=== PATIENT | male | born 1960 | race Hispanic/Latino ===

== ENCOUNTER 2021-03-09 14:12 | Emergency (ER) | payer MEDICAID, OTHER ==
--- NOTE | 2021-03-09 14:37 | Event Note ---
ED Screening Note ED Screening Note: Patient presents for lightheadedness that began today He states he then began having chest pain to the bilateral chest and reports it feels like someone is pressing knuckles into his chest He has associated shortness of breath and nausea He denies any vomiting, diarrhea, fever, cough, leg swelling Past medical history of CHF with defibrillator, HTN Former smoker This initial assessment/diagnostic orders/clinical plan/treatment(s) is/are subject to change based on patients health status, clinical progression and re- assessment by fellow clinical providers in the ED. Further treatment and workup at subsequent clinical providers discretion. Patient/guardian urged not to elope from the ED as their condition may be serious if not clinically assessed and managed. Initial orders include: labs, ekg, xr
[2021-03-09 15:00] LABS: Basophils # (Auto) 0.1 K/mm3 (0.0-0.1); Basophils % (Auto) 0.9 % (0.0-1.8); Eosinophils # (Auto) 0.6 K/mm3 (0.0-0.4); Eosinophils % (Auto) 3.9 % (0.0-4.3); Hematocrit 47.8 % (35.5-45.6); Hemoglobin 16.6 gm/dl (11.8-15.2); Lymphocytes # (Auto) 3.2 K/mm3 (1.2-5.4); Lymphocytes % (Auto) 21.7 % (13.4-35.0); Mean Corpuscular HGB Conc 35 % (32-34); Mean Corpuscular Volume 93 fl (84-94); Monocytes # (Auto) 0.9 K/mm3 (0.0-0.8); Monocytes % (Auto) 6.1 % (0.0-7.3); Platelet Count 244 K/mm3 (140-440); Red Blood Count 5.13 M/mm3 (3.65-5.03)
[2021-03-09 15:12] LABS: INR 0.94 (0.87-1.13); Partial Thromboplastin Time 30.8 Sec. (24.2-36.6)
[2021-03-09 15:15] LABS: Alanine Aminotransferase 18 units/L (7-56); Albumin 4.1 g/dL (3.9-5); BUN/Creatinine Ratio 20; Blood Urea Nitrogen 16 mg/dL (9-20); Calcium 9.1 mg/dL (8.4-10.2); Hemolysis Index 17
--- NOTE | 2021-03-09 15:43 | XRay Report ---
CHEST 2 VIEWS INDICATION / CLINICAL INFORMATION: Chest Pain. COMPARISON: None available. FINDINGS: SUPPORT DEVICES: Cardiac ICD lead appears appropriately positioned. HEART / MEDIASTINUM: No significant abnormality. LUNGS / PLEURA: No significant pulmonary or pleural abnormality. No pneumothorax. ADDITIONAL FINDINGS: No significant additional findings. IMPRESSION: 1. No acute findings. Signer Name: Deejay Willson MD Signed: 03/09/2021 3:38 PM Workstation Name: [id number]
--- NOTE | 2021-03-09 18:14 | Emergency Department Report ---
ED General Adult HPI - General Chief complaint: Chest Pain Stated complaint: CHEST PAIN Time Seen by Provider: 03/09/21 15:12 Source: patient Mode of arrival: Ambulatory Limitations: No Limitations - History of Present Illness Initial comments: Patient presents to the emergency department with a chief complaint of chest pain has been present for the last 2 weeks. Patient states the pain is on the left side of his chest and radiates into his back. 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 He also states has been out of his thyroid medications for approximately 2 days. Patient states he has an appointment with the PA for medication refills. Patient denies abdominal pain or shortness of breath. Chest pain has been constant for 2 weeks -: Sudden Location: chest Radiation: back Severity scale (0 -10): 6 Quality: sharp Consistency: constant Improves with: none Worsens with: none Associated Symptoms: denies other symptoms Treatments Prior to Arrival: none - Related Data Allergies Allergy/AdvReac Type Severity Reaction Status Date / Time Penicillins Allergy Anaphylaxis Verified 03/09/21 14:30 ED Review of Systems ROS: Stated complaint: CHEST PAIN Other details as noted in HPI Comment: All other systems reviewed and negative Constitutional: denies: chills, fever Eyes: denies: eye pain, eye discharge, vision change ENT: denies: ear pain, throat pain Respiratory: denies: cough, shortness of breath, wheezing Cardiovascular: chest pain. denies: palpitations Endocrine: no symptoms reported Gastrointestinal: denies: abdominal pain, nausea, diarrhea Genitourinary: denies: urgency, dysuria Musculoskeletal: denies: back pain, joint swelling, arthralgia Skin: denies: rash, lesions Neurological: denies: headache, weakness, paresthesias Psychiatric: denies: anxiety, depression Hematological/Lymphatic: denies: easy bleeding, easy bruising ED Past Medical Hx - Past Medical History Previous Medical History?: Yes Hx Hypertension: Yes ED Physical Exam - General Limitations: No Limitations General appearance: alert, in no apparent distress - Head Head exam: Present: atraumatic, normocephalic - Eye Eye exam: Present: normal appearance, PERRL, EOMI - ENT ENT exam: Present: mucous membranes moist - Neck Neck exam: Present: normal inspection - Respiratory Respiratory exam: Present: normal lung sounds bilaterally. Absent: respiratory distress - Cardiovascular Cardiovascular Exam: Present: regular rate, normal rhythm. Absent: systolic murmur, diastolic murmur, rubs, gallop - GI/Abdominal GI/Abdominal exam: Present: soft, normal bowel sounds. Absent: distended, tenderness - Rectal Rectal exam: Present: deferred - Extremities Exam Extremities exam: Present: normal inspection - Back Exam Back exam: Present: normal inspection - Neurological Exam Neurological exam: Present: alert, oriented X3, CN II-XII intact. Absent: motor sensory deficit - Psychiatric Psychiatric exam: Present: normal affect, normal mood - Skin Skin exam: Present: warm, dry, intact, normal color. Absent: rash ED Course Vital Signs 03/09/21 03/09/21 15:18 15:21 Pulse Rate 70 68 Respiratory 10 L 14 Rate Blood Pressure 122/70 [Left] O2 Sat by Pulse 96 94 Oximetry ED Medical Decision Making - Lab Data Result diagrams: 03/09/21 14:38 03/09/21 14:38 Lab Results 03/09/21 03/09/21 03/09/21 Range/Units 14:38 14:38 14:38 WBC 14.9 H (4.5-11.0) K/mm3 RBC 5.13 H (3.65-5.03) M/mm3 Hgb 16.6 H (11.8-15.2) gm/dl Hct 47.8 H (35.5-45.6) % MCV 93 (84-94) fl MCH 32 (28-32) pg MCHC 35 H (32-34) % RDW 14.0 (13.2-15.2) % Plt Count 244 (140-440) K/mm3 Lymph % (Auto) 21.7 (13.4-35.0) % [place] % (Auto) 6.1 (0.0-7.3) % Eos % (Auto) 3.9 (0.0-4.3) % Baso % (Auto) 0.9 (0.0-1.8) % Lymph # (Auto) 3.2 (1.2-5.4) K/mm3 [place] # (Auto) 0.9 H (0.0-0.8) K/mm3 Eos # (Auto) 0.6 H (0.0-0.4) K/mm3 Baso # (Auto) 0.1 (0.0-0.1) K/mm3 Seg Neutrophils % 67.4 (40.0-70.0) % Seg Neutrophils # 10.1 H (1.8-7.7) K/mm3 PT 13.2 (12.2-14.9) Sec. INR 0.94 (0.87-1.13) APTT 30.8 (24.2-36.6) Sec. Sodium 134 L (137-145) mmol/L Potassium 4.0 (3.6-5.0) mmol/L Chloride 102.5 (98-107) mmol/L Carbon Dioxide 18 L (22-30) mmol/L Anion Gap 18 mmol/L BUN 16 (9-20) mg/dL Creatinine 0.8 (0.8-1.3) mg/dL Estimated GFR > 60 ml/min BUN/Creatinine Ratio 20 % Glucose 200 H (75-100) mg/dL Calcium 9.1 (8.4-10.2) mg/dL Total Bilirubin 0.50 (0.1-1.2) mg/dL AST 17 (5-40) units/L ALT 18 (7-56) units/L Alkaline Phosphatase 65 (35-129) units/L Troponin T < 0.010 (0.00-0.029) ng/mL NT-Pro-B Natriuret Pep 197.6 (0-900) pg/mL Total Protein 8.0 (6.3-8.2) g/dL Albumin 4.1 (3.9-5) g/dL Albumin/Globulin Ratio 1.1 % TSH (0.270-4.200) mlU/mL Thyroxine (T4) (4.0-12.0) ug/dL 03/09/21 03/09/21 Range/Units 16:27 16:27 WBC (4.5-11.0) K/mm3 RBC (3.65-5.03) M/mm3 Hgb (11.8-15.2) gm/dl Hct (35.5-45.6) % MCV (84-94) fl MCH (28-32) pg MCHC (32-34) % RDW (13.2-15.2) % Plt Count (140-440) K/mm3 Lymph % (Auto) (13.4-35.0) % [place] % (Auto) (0.0-7.3) % Eos % (Auto) (0.0-4.3) % Baso % (Auto) (0.0-1.8) % Lymph # (Auto) (1.2-5.4) K/mm3 [place] # (Auto) (0.0-0.8) K/mm3 Eos # (Auto) (0.0-0.4) K/mm3 Baso # (Auto) (0.0-0.1) K/mm3 Seg Neutrophils % (40.0-70.0) % Seg Neutrophils # (1.8-7.7) K/mm3 PT (12.2-14.9) Sec. INR (0.87-1.13) APTT (24.2-36.6) Sec. Sodium (137-145) mmol/L Potassium (3.6-5.0) mmol/L Chloride (98-107) mmol/L Carbon Dioxide (22-30) mmol/L Anion Gap mmol/L BUN (9-20) mg/dL Creatinine (0.8-1.3) mg/dL Estimated GFR ml/min BUN/Creatinine Ratio % Glucose (75-100) mg/dL Calcium (8.4-10.2) mg/dL Total Bilirubin (0.1-1.2) mg/dL AST (5-40) units/L ALT (7-56) units/L Alkaline Phosphatase (35-129) units/L Troponin T (0.00-0.029) ng/mL NT-Pro-B Natriuret Pep (0-900) pg/mL Total Protein (6.3-8.2) g/dL Albumin (3.9-5) g/dL Albumin/Globulin Ratio % TSH 0.006 L (0.270-4.200) mlU/mL Thyroxine (T4) 10.2 (4.0-12.0) ug/dL - EKG Data -: EKG Interpreted by Me EKG shows normal: sinus rhythm Rate: normal - Radiology Data Radiology results: report reviewed - Medical Decision Making Laboratory values and imaging reviewed Discussed results with patient Critical care attestation.: If time is entered above; I have spent that time in minutes in the direct care of this critically ill patient, excluding procedure time. ED Disposition Clinical Impression: Nonspecific chest pain Disposition: HOME / SELF CARE / HOMELESS Is pt being admited?: No Does the pt Need Aspirin: No Condition: Stable Instructions: Nonspecific Chest Pain, Adult Additional Instructions: Return if worse Referrals: PRIMARY CARE, [Primary Care Provider] - 3-5 Days DALJIT COOK MD [Staff Physician] - 3-5 Days CINDY JARQUIN MD [Staff Physician] - 3-5 Days Time of Disposition: 21:36
--- NOTE | 2021-03-09 21:31 | Cat Scan Report ---
CTA CHEST, ABDOMEN, AND PELVIS WITH CONTRAST INDICATION / CLINICAL INFORMATION: chest pain with radiation to back. TECHNIQUE: Axial CT images were obtained through the chest, abdomen, and pelvis before and after inje ction of IV contrast. 3 plane MIP and/or 3D reconstructions were produced. All CT scans at this [facility] are performed using CT dose reduction for ALARA by means of automated exposure control. COMPARISON: None available. FINDINGS: HEART: No significant abnormality. THORACIC AORTA: No significant abnormality. GREAT VESSELS: No significant abnormality. PULMONARY ARTERIES: No significant abnormality. ADDITIONAL CHEST FINDINGS: Multinodular thyroid goiter with substernal extension into the superior me diastinum. Multivessel coronary arterial calcifications. ABDOMINAL AORTA: No significant abnormality. RENAL ARTERIES: No significant abnormality. CELIAC ARTERY: No significant abnormality. SUPERIOR MESENTERIC ARTERY: No significant abnormality. INFERIOR MESENTERIC ARTERY: No significant abnormality. RIGHT ILIAC ARTERIES: No significant abnormality.. LEFT ILIAC ARTERIES: No significant abnormality.. ADDITIONAL ABDOMINOPELVIC FINDINGS: No acute abnormality. Colonic diverticulosis without diverticulit is. SKELETAL STRUCTURES: No significant abnormality. IMPRESSION: 1. No acute vascular abnormality. Specifically, no evidence of aortic dissection or pulmonary thrombo embolism. 2. No acute abnormalities within the chest, abdomen or pelvis. Chronic findings as above. Signer Name: Darin Driver MD Signed: 03/09/2021 9:27 PM Workstation Name: [id number]
--- NOTE | 2021-03-09 21:31 | Cat Scan Report ---
CTA CHEST, ABDOMEN, AND PELVIS WITH CONTRAST INDICATION / CLINICAL INFORMATION: chest pain with radiation to back. TECHNIQUE: Axial CT images were obtained through the chest, abdomen, and pelvis before and after inje ction of IV contrast. 3 plane MIP and/or 3D reconstructions were produced. All CT scans at this [facility] are performed using CT dose reduction for ALARA by means of automated exposure control. COMPARISON: None available. FINDINGS: HEART: No significant abnormality. THORACIC AORTA: No significant abnormality. GREAT VESSELS: No significant abnormality. PULMONARY ARTERIES: No significant abnormality. ADDITIONAL CHEST FINDINGS: Multinodular thyroid goiter with substernal extension into the superior me diastinum. Multivessel coronary arterial calcifications. ABDOMINAL AORTA: No significant abnormality. RENAL ARTERIES: No significant abnormality. CELIAC ARTERY: No significant abnormality. SUPERIOR MESENTERIC ARTERY: No significant abnormality. INFERIOR MESENTERIC ARTERY: No significant abnormality. RIGHT ILIAC ARTERIES: No significant abnormality.. LEFT ILIAC ARTERIES: No significant abnormality.. ADDITIONAL ABDOMINOPELVIC FINDINGS: No acute abnormality. Colonic diverticulosis without diverticulit is. SKELETAL STRUCTURES: No significant abnormality. IMPRESSION: 1. No acute vascular abnormality. Specifically, no evidence of aortic dissection or pulmonary thrombo embolism. 2. No acute abnormalities within the chest, abdomen or pelvis. Chronic findings as above. Signer Name: Darin Driver MD Signed: 03/09/2021 9:27 PM Workstation Name: [id number]
[2021-03-09 21:43] VITALS: BP 132/69
--- NOTE | 2021-03-17 10:18 | Electrocardiograph Report ---
[facility] Test Date: 2021-03-09 Test Time: 14:28:31 Pat Name: HEATHER DÍAZ Department: Room: Gender: M Emergency Specialist: JOSE ANGEL : 1960 Requested By: GONZALO BAUM Order Number: [id number] Reading MD: Dallas Hui Measurements Intervals [place] Rate: 74 P: 7 [place]: 155 QRS: -15 QRSD: 100 T: 68 QT: 381 QTc: 424 Interpretive Statements Sinus rhythm Anterior infarct, old No previous ECG available for comparison Electronically Signed On 03-17-2021 10:18:48 EDT by Dallas Hui
== END 2021-03-09 21:43 | disposition home or self-care (01) ==
LOC: ED 14:12
DX: R07.9 Chest pain, unspecified (principal); I10 Essential (primary) hypertension; Z88.0 Allergy status to penicillin
CPT/HCPCS: 36415; 71046; 71275; 74174; 80053; 83880; 84436; 84443; 84484; 85025; 85610; 85730; 93005; 99284; Q9967

== ENCOUNTER 2021-07-14 15:49 | Emergency (ER) | payer OTHER ==
[2021-07-14] MEDS ORDERED: SODIUM CHLORIDE 0.9% 1000 ML 1,000 ML IV ONE (17:45)
--- NOTE | 2021-07-14 17:46 | Emergency Department Report ---
ED General Adult HPI - General Chief complaint: BP Check / Ring removal req Stated complaint: LOW BLOOD PRESSURE/DIZZY Time Seen by Provider: 07/14/21 17:39 Source: patient Mode of arrival: Ambulatory Limitations: No Limitations - History of Present Illness Initial comments: Patient presents with a 2-day history of generalized malaise. He has not felt w ell. He states that he feels weak. He states that his blood pressure was also low at home in the 80s. He is not sure what is going on. There has been no recent illness. He has no fevers. There is no cough or congestion. Patient denies vomiting or diarrhea. He has not had chest pain. He states that he just did not feel well. He decided to come here for evaluation because of this. - Related Data Allergies Allergy/AdvReac Type Severity Reaction Status Date / Time Penicillins Allergy Anaphylaxis Verified 03/09/21 14:30 ED Review of Systems ROS: Stated complaint: LOW BLOOD PRESSURE/DIZZY Other details as noted in HPI Comment: All other systems reviewed and negative Constitutional: denies: fever Eyes: denies: vision change ENT: denies: throat pain Respiratory: denies: cough Cardiovascular: denies: chest pain Endocrine: denies: unexplained weight loss Gastrointestinal: denies: abdominal pain Genitourinary: denies: dysuria Musculoskeletal: denies: back pain Skin: denies: rash Neurological: as per HPI, weakness. denies: headache Hematological/Lymphatic: denies: easy bruising ED Past Medical Hx - Past Medical History Hx Hypertension: Yes - Family History Family history: hypertension ED Physical Exam - General Limitations: No Limitations, Other General appearance: alert (Socks noted and normal), in no apparent distress - Head Head exam: Present: normocephalic - Eye Eye exam: Present: normal appearance, EOMI. Absent: scleral icterus - ENT ENT exam: Present: mucous membranes dry, normal external ear exam - Neck Neck exam: Present: normal inspection. Absent: meningismus - Respiratory Respiratory exam: Present: normal lung sounds bilaterally. Absent: respiratory distress - Cardiovascular Cardiovascular Exam: Present: regular rate, normal rhythm - GI/Abdominal GI/Abdominal exam: Present: soft. Absent: distended, tenderness, pulsatile mass - Extremities Exam Extremities exam: Present: normal capillary refill - Back Exam Back exam: Absent: CVA tenderness (R), CVA tenderness (L) - Neurological Exam Neurological exam: Present: alert, oriented X3, CN II-XII intact, normal gait. Absent: motor sensory deficit - Psychiatric Psychiatric exam: Present: normal affect, normal mood - Skin Skin exam: Present: warm, dry ED Course Vital Signs 07/14/21 07/14/21 15:59 21:09 Temperature 98.7 F 98.0 F Pulse Rate 80 77 Respiratory 18 16 Rate Blood Pressure 102/59 130/70 [Right] O2 Sat by Pulse 94 100 Oximetry - Reevaluation(s) Reevaluation #1: 07/14/21 17:45 IV and labs ordered. Old records noted. Reevaluation #2: 07/14/21 23:55 Labs are noted and the patient was discharged ED Medical Decision Making - Lab Data Result diagrams: 07/14/21 17:53 07/14/21 17:53 - Medical Decision Making Patient presented with generalized weakness. He clinically was dehydrated based on dry mucous membranes. There is no evidence of obvious infectious pathology. He does not appear to have any evidence of metabolic derangement or encephalopathy otherwise. He does not have acute kidney injury or hyperkalemia. Patient has been treated with fluids and was feeling better. Upon repeat eval uation, he felt well and stated that he thinks that he might have just been dehydrated. He had reported blood pressures in the 80s, but the blood pressure was not that low here. Patient was treated symptomatically and discharged. Critical Care Time: No Critical care attestation.: If time is entered above; I have spent that time in minutes in the direct care of this critically ill patient, excluding procedure time. ED Disposition Clinical Impression: Lightheaded Disposition: 01 HOME / SELF CARE / HOMELESS Is pt being admited?: No Condition: Stable Instructions: Dizziness Additional Instructions: HAVE A BLAND DIET. DRINK WATER. SEE YOUR DOCTOR OR THE REFERRAL DOCTOR FOR FOLLOW UP. RETURN FOR PROBLEMS. Referrals: PRIMARY MD RIMA [Referring] - 3-5 Days MERVAT FELIPE MD [Staff Physician] - 3-5 Days
[2021-07-14 18:09] LABS: Hematocrit 49.7 % (35.5-45.6); Hemoglobin 16.8 gm/dl (11.8-15.2); Mean Corpuscular HGB Conc 34 % (32-34); Mean Corpuscular Volume 87 fl (84-94); Platelet Count 229 K/mm3 (140-440); Red Blood Count 5.71 M/mm3 (3.65-5.03); Red Cell Distribution Width 14.3 % (13.2-15.2)
[2021-07-14 18:28] LABS: BUN/Creatinine Ratio 19; Blood Urea Nitrogen 17 mg/dL (9-20); Hemolysis Index 20
[2021-07-14 21:10] VITALS: BP 130/70
== END 2021-07-14 21:10 | disposition home or self-care (01) ==
LOC: ED 15:49
DX: R42 Dizziness and giddiness (principal); I10 Essential (primary) hypertension; Z88.0 Allergy status to penicillin
CPT/HCPCS: 36415; 80048; 85027; 96360; 99283; J7030; Q0162